=== PATIENT | male | born 1970 | race Hispanic/Latino ===

== ENCOUNTER 2019-08-27 01:03 | Day surgery (SDC) | payer OTHER, SELFPAY ==
[2019-08-18 13:15] VITALS: BMI 33.3
--- NOTE | 2019-08-26 17:26 | WPDANESEPP ---
Anes - Eval Pre Procedure Procedure: Operation Date: 08/27/19 08:30 Proposed Procedures p Right Open Carpal Tunnel Release - Kory Yeboah MD Date/Time: 08/26/19 17:26 Pre Op Diagnosis: Right Carpal Tunnel Syndrome Patient Data Age: 49 Gender: M Height: 5 ft 5 in Weight: 90.72 kg Allergies Allergy/AdvReac Type Severity Reaction Status Date / Time No Known Allergies Allergy Unverified 08/18/19 13:14 Home Medications Medication Instructions Recorded Confirmed Type No Home Medications 08/18/19 08/18/19 History Patient hx anesthesia problems: none Family hx anesthesia problems: none PMFSH Past Medical History Medical History Dermatitis Obesity Social History Social History Smoking status: Never smoker Alcohol intake: current Gender identity (if verbalized by the patient): Male Exam Day of Procedure 08/26/19 17:26
--- NOTE | 2019-08-27 06:36 | HP_ITS ---
DATE OF SERVICE: 08/27/2019 PREOPERATIVE DIAGNOSIS: Right carpal tunnel syndrome. HISTORY: The patient is 49. He was initially seen in March with several hand complaints. These subsequently unroofed some compression neuropathy, and a diagnosis of carpal tunnel syndrome was made by nerve conduction test done by Joshua Morales. This shows severe chronic sensory, motor, axonal, and median neuropathy across the right carpal tunnel. This is consistent with the patient's history and exam. He has elected to have surgery today. He understands the risks include those to nerves, tendons, possible skin infections, hematoma, bruising, and poor recovery of premorbid sensory or motor condition, and he would like to proceed. He understands this is not going to correct any of other complaints. MEDICATIONS: It is noted that he takes no medications. ALLERGIES: HE HAS NO KNOWN ALLERGIES TO MEDICATIONS. PAST SURGICAL HISTORY: He has had no prior surgeries. He is not under the care of any other specialists. He does not smoke. He is not diabetic, has no autoimmune diseases, or other immune weakening conditions. FAMILY HISTORY: Noncontributory. SOCIAL HISTORY: He lives in [place]. He works for [employer]. Does not list the spouse. PHYSICAL EXAMINATION: GENERAL: He is a very pleasant, very informative adult male. He is 5 feet 5 inches, weighs 200 pounds. He is in no acute distress. HEENT EXAM: Unremarkable. CHEST: Clear to auscultation. HEART: Regular rate and rhythm by palpation. ABDOMEN: Soft and nontender. EXTREMITIES: Appear normal. He has a malunion of the right 3rd distal phalanx, date is unknown. Regarding his compression neuropathy, he has a few physical findings, but on the right, there is thenar tenderness, and there is a Tinel's at the right wrist. He has a Tinel's at the right elbow, and the wrist compression test on the right was positive. ASSESSMENT: Severe right carpal tunnel syndrome. PLAN: Right open carpal tunnel release under local anesthetic. This patient has failed a cortisone injection for this condition. D I MT: [facility]
--- NOTE | 2019-08-27 07:21 | WPDHPUPDATE1 ---
History and Physical Update Update Date/Time: 08/27/19 07:21 History and Physical has been reviewed, including an updated exam of the patient. There are NO changes in the patient's condition. Risks, benefits, and alternatives have been discussed and questions answered. Patient agrees to proceed with procedure.
[2019-08-27 07:40] VITALS: BP 126/68; PULSE 72; RESP 18; TEMP 36.6; O2SAT 98; BMI 33.4
[2019-08-27 08:30] VITALS: BP 154/88; PULSE 98; RESP 16; O2SAT 98
--- NOTE | 2019-08-27 08:34 | PM.OP ---
Procedure Note - Brief Procedure Note - Brief Date of procedure: 08/27/19 Pre-op diagnosis: Right Carpal Tunnel Syndrome Post-op diagnosis: same Procedure performed: R OCTR Anesthesia: local Surgeon: Kory Yeboah MD Estimated blood loss (mL): 2 Drains: No Packing: No Pathology: none sent Complications: No immediate complications Disposition: same day
[2019-08-27] MEDS: LIDO 1%/EPINEPHRINE 1:100,000 20 ML VIAL INFILTRATE (08:41)
[2019-08-27 08:43] VITALS: BP 130/84; PULSE 95; RESP 16; O2SAT 94
[2019-08-27 08:53] VITALS: BP 125/79; PULSE 65; RESP 16; O2SAT 94
[2019-08-27 09:00] VITALS: BP 114/79; PULSE 69
--- NOTE | 2019-08-27 12:40 | PM.PROC ---
Procedure Note - Detailed Date of procedure: 08/27/19 Pre-op diagnosis: Right Carpal Tunnel Syndrome Post-op diagnosis: same Procedure performed: R OCTR Description of procedure: The right carpal tunnel site was marked in the holding area. He was taken to the operating room. He was placed supine on the operating table; a time-out was held and confirmed. The site was prepped and draped in usual fashion. The proposed incision was remarked and locally infiltrated with 1% lidocaine with epinephrine. The the tourniquet was utilized at the end of the operation at 250 mmHg. The incision was made as marked and dissection was carried bluntly through the subcutaneous tissue to the palmar fascia. This and the carpal ligament were incised with a 15. Blade. The patient experienced some pain proximally as we divided the ligament and additional 1% lidocaine with epinephrine was infiltrated. With his thick, short hand this produced some additional problems with visualization proximally and the incision was extended proximally. It was then that the tourniquet was inflated. The division of the carpal ligament continued as usual. No unusual anatomy was noted and the wound was repaired with interrupted 4-0 nylon suture. The usual bandage was applied. A prescription for hydrocodone 5/325 was electronically set. He has instructions in wound care and follow-up. Surgeon: Kory Yeboah MD
== END 2019-08-27 09:49 | disposition home or self-care (01) ==
PROVIDERS: Visit Provider Plastic Surgery
PROC: (CPT 64721; principal; 2019-08-27 08:30)
DX: G56.01 Carpal tunnel syndrome, right upper limb (principal); E66.9 Obesity, unspecified; Z68.33 Body mass index [BMI] 33.0-33.9, adult
CPT/HCPCS: 64721; A9270

== ENCOUNTER → 2021-01-07 00:14 | Outpatient (CLI) | payer OTHER, SELFPAY ==
[2021-01-07 19:26] LABS: SARS-CoV-2 RNA PCR Negative
== END ==
PROVIDERS: Visit Provider Plastic Surgery
DX: Z01.812 Encounter for preprocedural laboratory examination (principal); Z20.822 Contact with and (suspected) exposure to COVID-19
CPT/HCPCS: C9803; U0003; U0005

== ENCOUNTER 2021-01-11 00:45 | Day surgery (SDC) | payer OTHER, SELFPAY ==
[2020-12-28 09:35] VITALS: BMI 29.9
[2021-01-11 07:11] VITALS: BP 138/91; PULSE 84; RESP 16; TEMP 36.4; O2SAT 99
--- NOTE | 2021-01-11 07:18 | WPDHPUPDATE1 ---
History and Physical Update Update Date/Time: 01/11/21 07:18 History and Physical has been reviewed, including an updated exam of the patient. There are NO changes in the patient's condition. Risks, benefits, and alternatives have been discussed and questions answered. Patient agrees to proceed with procedure.
[2021-01-11 07:32] VITALS: BP 135/85; PULSE 80; RESP 16; O2SAT 96
[2021-01-11 07:42] VITALS: BP 139/90; PULSE 72; RESP 16; O2SAT 96
[2021-01-11] MEDS: BACITRACIN OINTMENT 15 GM TUBE 1 APPLIC TOPICAL (07:46)
[2021-01-11] MEDS: LIDO 1%/EPINEPHRINE 1:100,000 50 ML VIAL INFILTRATE (07:46)
[2021-01-11 07:52] VITALS: BP 136/91; RESP 16; O2SAT 96
[2021-01-11 08:06] VITALS: BP 138/77; PULSE 73; RESP 16; O2SAT 98
--- NOTE | 2021-01-11 08:18 | PM.OP ---
Procedure Note - Brief Procedure Note - Brief Date of procedure: 01/11/21 Pre-op diagnosis: left carpal tunnel syndrome Post-op diagnosis: same Procedure performed: Left carpal tunnel release Anesthesia: local Surgeon: Kory Yeboah MD Estimated blood loss (mL): 3 Tourniquet time (min): 4 Drains: No Packing: No Complications: No immediate complications Condition: stable Disposition: same day
--- NOTE | 2021-01-11 08:19 | W.PM.PROC2 ---
Procedure Note - Detailed Date of Procedure 01/11/21 Pre-op Diagnosis left carpal tunnel syndrome Post-op Diagnosis same Procedure Performed Left open carpal tunnel release Surgeon Kory Yeboah MD Anesthesia local Indications Left carpal tunnel syndrome failing conservative treatment Description of Procedure The site was marked on the patient's wrist in the holding area. He was taken to the operating room and placed supine on the operating table. A time-out was held and confirmed. The left upper extremity was prepped and draped in usual fashion. The site was remarked with a pen and locally infiltrated with 1% lidocaine with epinephrine. The procedure was begun without tourniquet control. During the procedure bleeding became a problem. We stopped to exsanguinate the extremity and inflate the tourniquet to 250 mmHg. The incision was made in the palm and dissection was carried bluntly through the subcutaneous tissue to the palmar fascia. This and the transverse carpal ligament were incised with a 15. Blade. Patient had several points of bleeding. The transverse carpal ligament was incised with a 15 blade and we were able to release that proximally. Distally, bleeding proved to be a problem. We inflated the tourniquet and finished the case by release of the ligament distally using scissors. A complete release was completed. There was no unusual anatomy noted. The skin was closed with interrupted 4-0 nylon suture. The tourniquet was released and the usual bandage was applied. The patient is being released with instructions in wound care and follow-up. A prescription has sent for Percocet 5/325 10. On the prior similar case as he had had a problem with pain. Estimated Blood Loss 3 Tourniquet Time 4 Drains No Packing No Pathology none sent Complications No immediate complications Condition stable Disposition same day
== END 2021-01-11 08:25 | disposition home or self-care (01) ==
PROVIDERS: Visit Provider Plastic Surgery
PROC: (CPT 64721; principal; 2021-01-11 07:30)
DX: G56.02 Carpal tunnel syndrome, left upper limb (principal)
CPT/HCPCS: 64721; A9270

== ENCOUNTER 2022-06-16 08:43 | Emergency (ER) | payer OTHER, SELFPAY ==
[2022-06-16 08:51] VITALS: BP 128/83; PULSE 97; RESP 20; TEMP 37.1; O2SAT 98
--- NOTE | 2022-06-16 09:12 | ED.URI ---
HPI - URI/Sore Throat General Chief Complaint: Upper Respiratory Infection Stated Complaint: Running Nose, Cough Time Seen by Provider: 06/16/22 09:13 Source: patient and RN notes reviewed Mode of arrival: ambulatory Limitations: no limitations History of Present Illness HPI Narrative: 51-year-old male presenting for complaint of headache, body aches, sinus pressure/congestion, cough, fever/chills. Onset 4 days. Denies sick contacts. Denies shortness of breath, wheezing, nausea, vomiting, diarrhea. Endorses temperature last night up to 100. Not taking anything for symptoms. Patient does not have PCP. Endorses history of COVID pneumonia last year. MD elicited complaint: cough Related Data Allergies Allergy/AdvReac Type Severity Reaction Status Date / Time No Known Allergies Allergy Unverified 01/11/21 07:08 Review of Systems Review of Systems: CONSTITUTIONAL: Endorses malaise, chills, sweats, fever EYES: Denies visual changes, redness, or discharge ENT: Reports rhinorrhea, congestion, sinus pain, otalgia, sore throat CARDIOVASCULAR: Denies chest pain, palpitations, edema RESPIRATORY: Reports cough, post nasal drainage. Denies dyspnea GASTROINTESTINAL: Denies abdominal pain, nausea, vomiting, diarrhea MUSCULOSKELETAL: Endorses myalgia NEUROLOGIC: Endorses headache PMFSH Past Medical History Medical History Dermatitis Obesity Social History Social History Smoking status: Never smoker Alcohol intake: current Alcohol use details: VERY RANDOM - MAY BINGE AND THEN NOTHING FOR MONTHS Substance use: never Substance use type: does not use Gender identity (if verbalized by the patient): Male Spiritual care concerns: No Exam Narrative: GENERAL: Ill-appearing, nontoxic EYES: PERRLA, conjunctivae clear ENT: Mucous membranes moist. TMs pearly villegas with dull light reflex bilaterally; no tragal tenderness. Oropharynx erythematous without lesions or exudate, no drooling, no hoarseness, no trismus, uvula midline. CHEST: Clear to auscultation, breath sounds equal. HEART: Regular rate and rhythm. No murmur heard. SKIN: Warm, dry, no rash. NEURO: Alert and oriented x3. PSYCH: Normal mood and affect Course Course Emergency Course: Patient is aware of diagnosis, understands and agrees to treatment plan. Anticipatory guidance given. Patient agrees to follow-up as directed and is aware of reasons to seek care at the emergency department. Portions of this record may have been created with voice recognition software Level of Care: Express Care Visit Vital Signs Vital signs: Vital Signs Temperature 98.8 F 06/16/22 08:51 Pulse Rate 97 06/16/22 08:51 Respiratory Rate 20 06/16/22 08:51 Blood Pressure 128/83 06/16/22 08:51 Pulse Oximetry 98 06/16/22 08:51 Oxygen Delivery Room Air 06/16/22 08:51 Temperature 98.8 F 06/16/22 08:51 Pulse Rate 97 06/16/22 08:51 Respiratory Rate 20 06/16/22 08:51 Blood Pressure 128/83 06/16/22 08:51 Pulse Oximetry 98 06/16/22 08:51 Oxygen Delivery Room Air 06/16/22 08:51 reviewed MDM - URI/Sore Throat MDM Narrative Medical decision making narrative: COVID negative. Influenza positive. Results reviewed with patient. Advised supportive measures and signs/symptoms to go to the ER. Pt is appropriate for outpt treatment and f/u. Differential Diagnosis Differential diagnosis: Likely upper respiratory infection, sinusitis, viral infection and influenza Discharge Plan Discharge Clinical Impression: Influenza Patient Disposition: Home, Self-Care Condition: Stable Instructions: Influenza (ED) Additional Instructions: Influenza positive You should avoid crowds until you are fever free for 24 hours without the use of fever reducing medications, or the symptoms are improved Rest. Drink plenty of fluids. Tylenol
== END 2022-06-16 09:31 | disposition home or self-care (01) ==
PROVIDERS: Emergency Provider Nurse Practitioner Family
DX: J11.1 Influenza due to unidentified influenza virus with other respiratory manifestations (principal); Z20.822 Contact with and (suspected) exposure to COVID-19
CPT/HCPCS: 87426; 87804; 99213; C9803; G0463

== ENCOUNTER 2024-09-23 09:21 | Outpatient (CLI) | payer OTHER, SELFPAY ==
--- NOTE | ~2024-09-23 | XR_ITS ---
XR shoulder RT min 2V Ordering provider: Daisy Alvarado APRN History: . M25.511 - Pain in right shoulder . Comparison: None. FINDINGS: BONES: Avulsion fracture in the area of the greater tuberosity is highly suggestive. Clinical correla tion advised. No other definite abnormality. JOINT SPACES: The acromioclavicular joint shows mild osteoarthritic changes. The glenohumeral joint i s normal. SOFT TISSUES: Normal. IMPRESSION: Possible avulsion fracture in the area of the greater tuberosity. Clinical correlation and further ev aluation advised. Reviewed, dictated and finalized at location A. NT AIDE IMPRESSION: Possible avulsion fracture in the area of the greater tuberosity. Clinical esperanza elation and further evaluation advised.
--- OUTSIDE RECORDS SUMMARY | 2024-09-23 10:01 | XMS_ITS | Clinical Summary ---
Author Organization [facility] Address [address] [place] [address] Care Team Providers Care Deliverer Pharmacy Name Role Phone Unavailable Primary Care Provider Unavailabl e Source Comments [facility],non-owned Affiliates and Associated Physician Practices is amultiple site organization consisting of ambulatory clinics and hospital sitesin [place], [place], [place] and [place]. This disclosure is being madepursuant to the Care Everywhere program and may not contain all information available regarding this patient. Last updated 18.[facility] Social History Tobacco Use Types Packs/Day Years Used Date Smoking Tobacco: Never Assessed Sex and Gender Information Value Date Recorded Sex Assigned at Not on file Gender Identity Not on file Sexual Orientation Not on file Plan of Treatment Health Maintenance Due Date Last Done Comments COLOGUARD (AGES 45-75) - COL ON CA SCREENING 1971 COLON MONITORING 1971 COLONOSCOPY - COLON CA SCREENING 1971 CT COLONOGRAPHY - COLON CA SCREENING 1971 Colorectal Cancer Screening 1971 FIT - COLON CA SCREENING 1971 FLEX SIG - COLON CA SCREENING 1971 LIPID TESTING 1971 HIV SCREENING 1986 HEPATITIS C SCREENING 08/17/1989 DTAP/TDAP/TD VACCINES (1 - Tdap) 1990 HEPATITIS B VACCINE (1 of 3 - 19+ 3-dose series) 1990 PNEUMOCOCCAL VACCINE 50+ (1 of 1 - PCV) 2021 ZOSTER VACCINE (1 of 2) 2021 COVID-19 VACCINE ( - 2023-2 5 season) 2024 INFLUENZA VACCINE (#1) 2024 DEPRESSION SCREENING 07/22/2024 HIB VACCINE Aged Out No longer eligi ble based on patient's age to complete this topic HPV VACCINE Aged Out No longer eligi ble based on patient's age to complete this topic MENINGOCOCCAL (Group B) VACCINE Aged Out No longer eligible based on patient's age to complete this topic MENINGOCOCCAL VACCINE Aged Out No cydney shayan eligible based on patient's age to complete this topic PNEUMOCOCCAL VACCINE Aged Out No long er eligible based on patient's age to complete this topic
--- OUTSIDE RECORDS SUMMARY | 2024-09-23 10:01 | XMS_ITS | Encounter Summary ---
Author Organization [facility] Address [address] [place] [id number] Care Team Providers Care Housing Case Manager Name Role Phone None, Provider Primary Care Provider Milli Brasher NP Primary Care Provider [phone] Sammy Chan MD Unavailable [phone] Encounter Details Date Type Department Care Team (Late st Contact Info) Description 03/28/2021 Hospital Follow-up Call [facility] [place] [address] Cassie Guillaume RN Social History Tobacco Use Types Packs/Day Years Used Date Smoking Tobacco: Never Smokeless Tobacco: Never Alcohol Use Standard Drinks/Week Comments Yes 0 (1 standard drink = 0.6 oz pur e alcohol) socially Sex and Gender Information Value Date Recorded Sex Assigned at Not on file Legal Sex Male 10:36 AM CDT Gender Identity Not on file Sexual Orientation Not on file COVID-19 Exposure Response Date Recorded In the last month, have you been in contact with someone who was confirmed or suspected to have Coronavirus / COVID-19? No / Unsure 03/23/2021 5:27 PM CDT documented as of this encounter Functional Status * RETIRED Are you deaf or do you have serious difficulty hearing Answer Date of Assessment Author Status No 03/24/2021 12:00 AM CDT Acti ve * RETIRED Are you blind or do you have serious difficulty seeing, even when wearing glasses? Answer Date of Assessment Author Status No 03/24/2021 12:00 AM CDT Acti ve * Do you have serious difficulty walking or climbing stairs? Answer Date of Assessment Author Status No 03/24/2021 12:00 AM CDT Ryan Phipps RN Active * Do you have difficulty dressing or bathing? Answer Date of Assessment Author Status No 03/24/2021 12:00 AM CDT Ryan Phipps RN Active * Because of a physical, mental, or emotional condition, do you have difficulty doing errands alone such as visiting a doctor's office or shopping? Answer Date of Assessment Author Status No 03/24/2021 12:00 AM CDT Ryan Phipps RN Active documented as of this encounter Mental Status * Because of a physical, mental, or emotional condition, do you have serious difficulty concentrating, remembering, or making decisions? Answer Entry Date Author Status No 03/24/2021 12:00 AM CDT Ryan Phipps RN Active documented in this encounter Plan of Treatment Not on file documented as of this encounter Goals Goal Patient Goal Type Associated Problems Recent Progress Patient-Stated? Author Patient will return to prior living situation and remain independent in ADLs upon discharge from hospital General No Bharati Shelley RN documented as of this encounter Visit Diagnoses Not on filedocumented in this encounter Additional Health Concerns Infection Onset Date Last Indicated Resolved Time COVID-19 Confirmed 03/23/2021 03/23/2021 12:33 AM CDT documented as of this encounter Care Teams Housing Case Manager Relationship Specialty Start Date End Date None, Provider, PCP - General 03/23/21 04/12/21 Milli Newman NP [address] [place] [address] PCP - General NURSE PRACTITIONER 04/13/21 Sammy Chan MD [address] [address] Consulting Physician Internal Medicine Pulmonary Disease 04/19/21 documented as of this encounter
--- OUTSIDE RECORDS SUMMARY | 2024-09-23 10:01 | XMS_ITS | Patient Health Summary ---
Author Organization [facility] Address [address] [place] [address] Care Team Providers Care Veterinary Manager Name Role Phone Unavailable Primary Care Provider Unavailabl e Note from [facility],non-owned Affiliates and Associated Physician Practices is amultiple site organization consisting of ambulatory clinics and hospital sitesin [place], [place], [place]. This disclosure is being madepursuant to the Care Everywhere program and may not contain all information available regarding this patient. Last updated 18.[facility] Social History Tobacco Use Types Packs/Day Years Used Date Smoking Tobacco: Never Assessed Sex and Gender Information Value Date Recorded Sex Assigned at Not on file Gender Identity Not on file Sexual Orientation Not on file Procedures * DERMATOPATHOLOGY(Performed 12/01/2018) Results * DERMATOPATHOLOGY (12/01/2018 12:00 AM CDT) Case Report Dermatopathology Report Case: [id number] Authorizing Provider: Joseph Jay MD Collected: 12/01/2018 12:00 AM Pathologist: Kathy Allen MD Received: 12/03/2018 06:55 AM Specimen: Skin, left forehead 9 5:23 PM CDT DERMATOPATHOLOGY LABORATORY Final Diagnosis Specimen A. 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 9 5:23 PM CDT DERMATOPATHOLOGY LABORATORY Gross Description Specimen A: Received is one formalin filled container labeled with the patient's name and designated left forehead. The specimen consists of a shave biopsy (2 pieces) measuring [id number] & [id number]. Jar 0. 9 5:23 PM T DERMATOPATHOLOGY LABORATORY Microscopic Description Specimen A. SKIN, left forehead: The epidermis is focally necrotic and covered with a scale-crust. There is fibrin at the base. Adjacent to the erosion, there is focal parakeratosis and mild spongiosis of the epidermis. In the dermis there is a mainly superficial perivascular lymphoid infiltrate. Grocott's methenamine silver (GMS) stain fails to highlight fungal elements in the available sections. Additional deeper sections were obtained and reviewed. COMMENT: These histological findings can be seen in an eczematous dermatitis. If there is concern for a diagnosis of bullous pemphigoid, consideration may be given to submission of tissue for direct immunofluorescence. 5:23 PM [facility] DERMATOPATHOLOGY LABORATORY Disclaimer An external and internal positive and negative controls are appropriate for the histochemical, immunohistochemical and immunofluorescence stain(s) in this case (if any), except where stated explicitly. The performance characteristics of the stain(s) cited in this report were developed and its performance characteristic determined by the Dermatopathology Laboratory at [facility], directed by Dr. Jessica Allen. These tests need not be, and therefore are not, approved by the [place] Food and Drug Administration. The tests are used for clinical purposes. Billing Codes Specimen Charges Stain Charges 17252 1 23071 1 9 5:23 PM CDT DERMATOPATHOLOGY LABORATORY Embedded Images 5:23 PM T DERMATOPATHOLOGY LABORATORY Pathology/Cytolog y TISSUE SPECIMEN FROM SKIN / Unknown 12/01/2018 12/03/2018 6:55 AM CDT Joseph Jay MD LAB - PATHOLOGY/CYTO LOGY ORDERABLES DERMATOPATHOLOGY LABORATORY [facility] - Department of Dermatology [facility] [facility], [address] [place] [address], [facility] [phone]
--- OUTSIDE RECORDS SUMMARY | 2024-09-23 10:01 | XMS_ITS | Clinical Summary ---
Author Organization [facility] Address [facility] [place] [address] Care Team Providers Care Cooling System Operator Name Role Phone Trent Milli JHON Primary Care Provider [phone] Sammy Chan MD Unavailable [phone] Allergies No known active allergies Medications loratadine (CLARITIN) 10 MG tablet Take 1 tablet (10 mg total) by mouth daily. 30 tablet 1 Active fluticasone propionate (FLONASE) 50 MCG/ACT nasal spray 1 spray by Nasal route daily. 9.9 mL 1 Active albuterol sulfate HFA 108 (90 Base) MCG/ACT inhaler Inhale 2 puffs into the lungs every 4 (four) hours as needed for Wheezing or Shortness of breath. 1 g 1 Active Active Problems Problem Noted Date Diagnosed Date Acute respiratory failure ([facility]) 08/2020 Family History Medical History Relation Comments No Known Problems Father No Known Problems Mother None Neg Hx Relation Status Comments Father Mother Social History Tobacco Use Types Packs/Day Years Used Date Smoking Tobacco: Never Smokeless Tobacco: Never Tobacco Cessation:Counseling Given: Yes Alcohol Use Standard Drinks/Week Comments Yes 0 (1 standard drink = 0.6 oz pur e alcohol) socially PHQ-2 Answer Date Recorded PHQ-2 Score - If the patient scores above 3, please move on to questions 3-9 0 05/10/2021 Sex and Gender Information Value Date Recorded Sex Assigned at Not on file Legal Sex Male 10:36 AM CDT Gender Identity Not on file Sexual Orientation Not on file Last Filed Vital Signs Vital Sign Reading Time Taken Comments Blood Pressure 124/74 05/10/2021 11:15 AM CDT Pulse 74 05/10/2021 11:15 AM CDT Temperature 36.8 C (98.2 F) 05/10/2021 11:15 AM CDT Respiratory Rate 12 05/10/2021 11:15 AM CDT Oxygen Saturation 97% 05/10/2021 11:15 AM CDT Inhaled Oxygen Concentration - - Weight 98 kg (216 lb) 05/10/2021 11:15 AM CDT Height 165.1 cm (5' 5 ) 05/10/2021 11:15 AM CDT Body Mass Index 35.94 05/10/2021 11:15 AM CDT Plan of Treatment Health Maintenance Due Date Last Done Comments Colorectal Cancer Screening Colonoscopy (10 Years) 1971 Annual Physical 1974 PHQ-2 (Physician [employer]iox[employer]) 1983 Hepatitis C 1989 DTaP, Tdap and Td Vaccines ( 1 - Tdap) 1990 Hepatitis B Vaccines (1 of 3 - 19+ 3-dose series) 1990 Zoster Vaccines (1 of 2) 2021 Influenza Adult (#1) 2024 PHQ-2 (Physician Bioxodes) 07/22/2024 COVID-19 Vaccine Discontinued Meningococcal B Vaccine Aged Out No l onger eligible based on patient's age to complete this topic Meningococcal Vaccine Aged Out No cydney shayan eligible based on patient's age to complete this topic Pneumococcal Vaccine: Pediat rics (0 to 5 Years) and At-Risk Patients (6 to 64 Years) Aged Out No longer eligi ble based on patient's age to complete this topic RSV Immunizations Under 20 Months Aged Out No longer eligible based on patient's age to complete this topic Goals Goal Patient Goal Type Associated Problems Recent Progress Patient-Stated? Author Patient will return to prior living situation and remain independent in ADLs upon discharge from special care hospital General No Bharati Shelley RN Advance Directives * Full Code (Latest Code Status on File) Date Activated Date Inactivated Comments 03/23/2021 11:52 PM 03/25/2021 5:50 PM Care Teams Cooling System Operator Relationship Specialty Start Date End Date Milli Newman NP [address] [place] [address] PCP - General NURSE PRACTITIONER 04/13/21 Sammy Chan MD [address] [address] Consulting Physician Internal Medicine Pulmonary Disease 04/19/21
--- OUTSIDE RECORDS SUMMARY | 2024-09-23 10:01 | XMS_ITS | Encounter Summary ---
Author Organization [facility] Address [address] [place] [address] Care Team Providers Care Back End Architect Name Role Phone Unavailable Primary Care Provider Unavailabl e Encounter Details Date Type Department Care Team (Late st Contact Info) Description 12/03/2018 Lab Requisition [facility] Care DermPath Lab [address] [facility] [place] [id number] Joseph Jay MD [address] [place] [address] Social History Tobacco Use Types Packs/Day Years Used Date Smoking Tobacco: Never Assessed Sex and Gender Information Value Date Recorded Sex Assigned at Not on file Gender Identity Not on file Sexual Orientation Not on file documented as of this encounter Plan of Treatment Not on file documented as of this encounter Procedures Procedure Name Priority Date/Time Associated Diagnosis Comments DERMATOPATHOLOGY Routine 12/01/2018 12:0 0 AM CDT documented in this encounter Results * DERMATOPATHOLOGY (12/01/2018 12:00 AM CDT) Case Report Dermatopathology Report Case: [id number] Authorizing Provider: Joseph Jay MD Collected: 12/01/2018 12:00 AM Pathologist: Kathy Allen MD Received: 12/03/2018 06:55 AM Specimen: Skin, left forehead 9 5:23 PM CDT DERMATOPATHOLOGY LABORATORY Final Diagnosis Specimen A. 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 5:23 PM T DERMATOPATHOLOGY LABORATORY Gross Description Specimen A: Received is one formalin filled container labeled with the patient's name and designated left forehead. The specimen consists of a shave biopsy (2 pieces) measuring [id number] & [id number]. Jar 0. 5:23 PM T DERMATOPATHOLOGY LABORATORY Microscopic Description [...] of tissue for direct immunofluorescence. 5:23 PM [facility] DERMATOPATHOLOGY LABORATORY Disclaimer An external and internal positive and negative controls are appropriate for the histochemical, immunohistochemical and immunofluorescence stain(s) in this case (if any), except where stated explicitly. The performance characteristics of the stain(s) cited in this report were developed and its performance characteristic determined by the Dermatopathology Laboratory at [facility], directed by Dr. Jessica Allen. These tests need not be, and therefore are not, approved by the [place] Food and Drug Administration. The tests are used for clinical purposes. Billing Codes Specimen Charges Stain Charges 04190 1 34782 1 5:23 PM CDT DERMATOPATHOLOGY LABORATORY Embedded Images 5:23 PM CDT DERMATOPATHOLOGY LABORATORY Pathology/Cytolog y TISSUE SPECIMEN FROM SKIN / Unknown 12/01/2018 12/03/2018 6:55 AM CDT Joseph Jay MD LAB - PATHOLOGY/CYTO LOGY ORDERABLES DERMATOPATHOLOGY LABORATORY [facility] - Department of Dermatology [address] [place] [address], 5th Floor Lab [address] [phone] documented in this encounter Visit Diagnoses Not on filedocumented in this encounter
--- OUTSIDE RECORDS SUMMARY | 2024-09-23 10:01 | XMS_ITS | Referral Summary ---
Author Organization [facility] Address [address] [place] [address] Care Team Providers Care Welder Oxyhydrogen Name Role Phone Unavailable Primary Care Provider Unavailabl e Source Comments [facility],non-owned Affiliates and Associated Physician Practices is amultiple site organization consisting of ambulatory clinics and hospital sitesin [place], [place], [place] and [place]. This disclosure is being madepursuant to the Care Everywhere program and may not contain all information available regarding this patient. Last updated 18.[facility] [employer] Social History Tobacco Use Types Packs/Day Years Used Date Smoking Tobacco: Never Assessed Sex and Gender Information Value Date Recorded Sex Assigned at Not on file Gender Identity Not on file Sexual Orientation Not on file Plan of Treatment Not on file
== END 2024-09-23 09:22 | disposition home or self-care (01) ==
PROVIDERS: PCP Nurse Practitioner Family; Visit Provider Nurse Practitioner Family
DX: M25.511 Pain in right shoulder (principal); G89.29 Other chronic pain
CPT/HCPCS: 73030

== ENCOUNTER 2024-11-23 13:02 | Outpatient (CLI) | payer OTHER, SELFPAY ==
--- NOTE | ~2024-11-23 | MR_ITS ---
EXAMINATION: MR shoulder RT wo con DATE: 11/23/2024 13:38 INDICATION: Right shoulder pain TECHNIQUE: Magnetic resonance imaging (MRI) of the right shoulder was performed without intravenous c ontrast. Sequences included axial PD-weighted FS FSE, coronal oblique PD-weighted FS FSE, coronal obl ique T2-weighted FS FSE, sagittal PD-weighted FS FSE, and sagittal T1-weighted SE. COMPARISON: Right shoulder radiographs dated 09/23/2024 FINDINGS: Coracoacromial arch: The acromion undersurface is flat in morphology (type I) with small subacromial spur. The coracoacrom ial ligament is normal. Mild acromioclavicular osteoarthritis. Rotator cuff: Mild supraspinatus and infraspinatus tendinopathy. There is a small full-thickness tear measuring 5 m m AP along the superior facet footplate of the supraspinatus tendon and measuring 1 cm medial to late ral. The teres minor and subscapularis tendons are normal. Normal rotator cuff muscle bulk and signal . Biceps tendon, glenoid labrum and glenohumeral cartilage: Long head of the biceps tendon is normal. Normal anatomic variant [place] complex with absent anterosu perior glenoid labrum and thickened cordlike middle glenohumeral ligament. No labral tear. Glenohumer al cartilage is normal. Fluid: Small glenohumeral joint effusion which extends to the full-thickness rotator cuff tear to indicate w ith small amount of fluid in the subacromial/subdeltoid bursa. No loose osteochondral bodies. Bones: No fracture or pathologic marrow replacing process. Cystic change along the middle facet of the great er tuberosity likely related to chronic rotator cuff disease. IMPRESSION: 1. Mild supraspinatus and infraspinatus tendinopathy with small full-thickness tear along the footpla te of the supraspinatus tendon. Reviewed, dictated and finalized at location A. IMPRESSION: 1. Mild supraspinatus and infraspinatus tendinopathy with small full-thickness tear along the footplate of the supraspinatus tendon.
--- OUTSIDE RECORDS SUMMARY | 2024-11-23 13:34 | XMS_ITS | Clinical Summary ---
Author Organization [facility] Address [address] [facility] [place] [address] Care Team Providers Care Cafeteria Associate Name Role Phone Unavailable Primary Care Provider Unavailabl e Source Comments [facility],non-owned Affiliates and Associated Physician Practices is amultiple site organization consisting of ambulatory clinics and hospital sitesin [place], [place], [place] and [place]. This disclosure is being madepursuant to the Care Everywhere program and may not contain all information available regarding this patient. Last updated 18.[facility] Social History Tobacco Use Types Packs/Day Years Used Date Smoking Tobacco: Never Assessed Sex and Gender Information Value Date Recorded Sex Assigned at Not on file Legal Sex Male 4:07 PM CDT Gender Identity Not on file Sexual [...] VACCINE (1 of 2) 2021 COVID-19 VACCINE (1 - 2023-2 5 season) 2024 DEPRESSION SCREENING 07/22/2024 INFLUENZA VACCINE (Season Ended) 2025 HIB VACCINE Aged Out No longer eligi ble based on patient's age to complete this topic HPV VACCINE Aged Out No longer eligi ble based on patient's age to complete this topic MENINGOCOCCAL (Group B) VACC INE SHARED DECISION-MAKING Aged Out No longer eligibl e based on patient's age to complete this topic MENINGOCOCCAL GROUPS A/C/Y/W VACCINE Aged Out No longer eligible b ased on patient's age to complete this topic Insurance [employer]
--- OUTSIDE RECORDS SUMMARY | 2024-11-23 13:34 | XMS_ITS | Encounter Summary ---
Author Organization [facility] Address [address] [place] [address] Care Team Providers Care Metal Gauge Maker Name Role Phone None, Provider Primary Care Provider Milli Brasher NP Primary Care Provider [phone] Sammy Chan MD Unavailable [phone] Encounter Details Date Type Department Care Team (Late st Contact Info) Description 03/28/2021 Hospital Follow-up Call [facility] [place] [address] Cassie Guillaume RN Social History Tobacco Use [...] upon discharge from hospital General No Bharati Shellye RN documented as of this encounter Visit Diagnoses Not on filedocumented in this encounter Additional Health Concerns Infection Onset Date Last Indicated Resolved Time COVID-19 Confirmed 03/23/2021 03/23/2021 12:33 AM CDT documented as of this encounter Care Teams Metal Gauge Maker Relationship Specialty Start Date End Date None, Provider, PCP - General 03/23/21 04/12/21 Milli Newman NP [address] [place] [address] PCP - General NURSE PRACTITIONER 04/13/21 Sammy Chan MD [address] [address] Consulting Physician Internal Medicine Pulmonary Disease 04/19/21 documented as of this encounter
--- OUTSIDE RECORDS SUMMARY | 2024-11-23 13:34 | XMS_ITS | Clinical Summary ---
Author Organization [facility] Address [facility] [place] [address] Care Team Providers Care Computer Security Specialist Name Role Phone Trent Milli JHON Primary Care Provider [phone] Sammy Chan MD Unavailable [phone] Allergies No known active allergies Medications [...] Noted Date Diagnosed Date Acute respiratory failure ([facility]) 08/2020 Family History Medical History Relation Comments [...] Colonoscopy (10 Years) 1971 Annual Physical 1974 Hepatitis C 1989 DTaP, Tdap and Td Vaccines ( 1 - Tdap) 1990 Hepatitis B Vaccines (1 of 3 - 19+ 3-dose series) 1990 Pneumococcal Vaccine: 50+ Ye ars (1 of 1 - PCV) 2021 Zoster Vaccines (1 of 2) 2021 PHQ-2 (Physician [place]) 07/22/2024 COVID-19 Vaccine Discontinued Meningococcal B Vaccine Aged Out No l onger eligible based on patient's age to complete this topic Meningococcal Vaccine Aged Out No cydney shayna eligible based on patient's age to complete this topic RSV Immunizations Under 20 Months Aged Out No longer eligible based on patient's age to complete this topic Goals Goal Patient Goal Type Associated Problems Recent Progress Patient-Stated? Author Patient will return to prior living situation and remain independent in ADLs upon discharge from hospital General No Bharati Shelley RN Advance Directives * Full Code (Latest Code Status on File) Date Activated Date Inactivated Comments 03/23/2021 11:52 PM 03/25/2021 5:50 PM Care Teams Computer Security Specialist Relationship Specialty Start Date End Date [place]illi [place] [address] PCP - General NURSE PRACTITIONER 04/13/21 Sammy Chan MD [address] [place] [id number] Consulting Physician Internal Medicine Pulmonary Disease 04/19/21
--- OUTSIDE RECORDS SUMMARY | 2024-11-23 13:34 | XMS_ITS | Encounter Summary ---
Author Organization [facility] Address [address] [place] [address] Care Team Providers Care Jacquard Loom Carpet Weaver Name Role Phone Unavailable Primary Care Provider Unavailabl e Encounter Details Date Type Department Care Team (Late st Contact Info) Description 12/03/2018 Lab Requisition [facility] Care DermPath Lab [address] [facility] [place] [place] [phone] Joseph Jay MD [address] [place] [address] Social History Tobacco Use Types [...] AM CDT) Case Report Dermatopathology Report Case: [id number] Authorizing Provider: Joseph Jay MD Collected: 12/01/2018 12:00 AM Pathologist: Kathy Allen MD Received: 12/03/2018 06:55 AM Specimen: Skin, left forehead 9 5:23 PM CDT DERMATOPATHOLOGY LABORATORY Final Diagnosis Specimen A. 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 9 5:23 PM [facility] DERMATOPATHOLOGY LABORATORY Gross Description Specimen A: Received is one formalin filled container labeled with the patient's name and designated left forehead. The specimen consists of a shave biopsy (2 pieces) measuring 2g3g2bw & 7r8f4wb. Jar 0. 9 5:23 PM [facility] DERMATOPATHOLOGY LABORATORY Microscopic Description Specimen A. SKIN, [...] of tissue for direct immunofluorescence. 5:23 PM [facility] DERMATOPATHOLOGY LABORATORY Disclaimer An external and internal positive and negative controls are appropriate for the histochemical, immunohistochemical and immunofluorescence stain(s) in this case (if any), except where stated explicitly. The performance characteristics of the stain(s) cited in this report were developed and its performance characteristic determined by the Dermatopathology Laboratory at [facility], directed by Dr. Jessica Allen. These tests need not be, and therefore are not, approved by the [place] Food and Drug Administration. The tests are used for clinical purposes. Billing Codes Specimen Charges Stain Charges 48906 1 77471 1 9 5:23 PM CDT DERMATOPATHOLOGY LABORATORY Embedded Images 5:23 PM T DERMATOPATHOLOGY LABORATORY Pathology/Cytolog y TISSUE SPECIMEN FROM SKIN / Unknown 12/01/2018 12/03/2018 6:55 AM CDT us Joseph Jay MD LAB - PATHOLOGY/CYTOLOGY ORDERAB LES Final Result DERMATOPATHOLOGY LABORATORY [facility] - Department of Dermatology [address] [facility] [address], [place] 5th Floor Lab [address] [phone] documented in this encounter Visit Diagnoses Not on filedocumented in this encounter
== END 2024-11-23 13:03 | disposition home or self-care (01) ==
PROVIDERS: PCP Nurse Practitioner Family; Visit Provider Orthopaedic Surgery
DX: M75.91 Shoulder lesion, unspecified, right shoulder (principal); S46.811A Strain of other muscles, fascia and tendons at shoulder and upper arm level, right arm, initial encounter; X58.XXXA Exposure to other specified factors, initial encounter
CPT/HCPCS: 73221